=== PATIENT | male | born 1975 | race Caucasian/White ===

== ENCOUNTER 2018-11-21 17:30 | Observation (INO) | payer BC, SELFPAY ==
[2018-11-21] VITALS (7 sets, daily range): BP systolic 108–142; BP diastolic 71–88; PULSE 98–106; RESP 16–20; TEMP 37.3–37.5; O2SAT 92–99; BMI 31.6; BMI 34.4
[2018-11-21 17:46] LABS: Bacteria 0 SEEN /hpf (None Seen); Mucous, Urine 0 SEEN /hpf (<or=2+); Red Blood Cells-Urine 0 SEEN /hpf (0-5); Squamous Epithelial Cells - UA 0 SEEN /hpf (0-5); White Blood Cells 0 SEEN /hpf (0-5)
[2018-11-21 17:52] LABS: Color, Urine Yellow (Yellow); Glucose, Dipstick Normal (Normal); Ketone-Dipstick Negative (Negative); Leukocyte Esterase-Dipstick Negative /ul (Negative); Nitrite-Dipstick Negative (Negative); Occult Blood-Urine Negative /ul (Negative); Protein-Dipstick Negative (Negative); Urine Bilirubin Dipstick Negative (Negative); Urine Clarity Clear (Clear); Urine Urobilinogen Normal (Normal)
[2018-11-21 18:09] LABS: Absolute Lymphocyte Count 1.63 X10^3/ul (0.83-4.51); Absolute Neutrophil Count 8.3 X10^3/uL (2.0-7.7); Basophil# 0.03 X10^3/uL; Basophil% 0.3 % (0-1); Eosinophil# 0.26 X10^3/uL; Eosinophils% 2.3 % (0-5); Hemoglobin 13.2 g/dl (13.0-16.5); Lymphocyte # 1.63 X10^3/ul (4.0); Lymphocyte % 14.2 % (19-41); Mean Corpuscular Hgb 28.9 pg (27.0-32.0); Mean Corpuscular Volume 87.5 fL (80-94); Mean Platelet Vol. 10.2 fl (6.2-12.0); Monocyte# 1.28 X10^3/uL; Monocyte% 11.1 % (0-10); Neutrophil # 8.25 X10^3/uL (2.7-7.7); Neutrophil % 71.8 % (47-70); POSITIVE COUNT NO; POSITIVE DIFFERENTIAL NO; POSITIVE MORPHOLOGY NO; Platelet Count 270 K/mm3 (150-450); RBC Distribution Width CV 13.6 % (11.6-14.6); RBC Distribution Width SD 43.7 fl (35.1-43.9); Red Blood Count 4.57 M/mm3 (4.6-6.2); White Blood Count 11.5 K/mm3 (4.4-11.0)
[2018-11-21 18:16] LABS: Anion Gap 5 (5-15); BUN 13 mg/dL (7-18); BUN/Creat Ratio 11.5 RATIO (10-20); Calcium,Total 8.8 mg/dL (8.5-10.1); Chloride 105 mmol/L (98-107); Creatinine, Serum 1.13 mg/dL (0.70-1.30); EST Glomerular Filtration Rate 75 mL/min (>60); Est Glom Filt Rate - Afr Amer 91 mL/min (>60); Estimated Creatinine Clearance 73.32 ml/min; Glucose 99 mg/dL (74-106); Potassium 3.9 mmol/L (3.5-5.1); Sodium Level 138 mmol/L (136-145)
--- NOTE | 2018-11-21 18:43 | CT_ITS ---
STUDY: CT ABDOMEN AND PELVIS WITHOUT CONTRAST REASON FOR EXAM: Male, 43 years old. Right lower quadrant pain since yesterday. RADIATION DOSAGE (If Supplied By Facility): CTDIvol = ( 16.43 ) mGy, DLP = ( 1151.49 ) mGycm TECHNIQUE: Transaxial images were obtained from the dome of the diaphragm to the symphysis pubis without oral contrast, and without intravenous contrast. Sagittal and coronal images were reconstructed. Individualized dose optimization techniques were used for this CT. COMPARISON: None. FINDINGS: The visualized lung bases are unremarkable. The visualized portions of the heart are within normal limits. The liver is normal in size contour and density. There is a vague heterogenous hypoechoic area in segment IVb of the liver which may represent a complicated cyst or hemangioma. Liver is otherwise unremarkable. Normal gallbladder and extrahepatic biliary system. Normal spleen. Normal pancreas. Normal bilateral adrenal glands. There are at least 3 small calcifications in the lower pole calyces of the right kidney. The largest measures 2 mm. The right kidney is otherwise unremarkable. There is no hydronephrosis. Normal right ureter. The left kidney is of normal size and cortical thickness. There are multiple small nonobstructing renal calculi in both the upper and lower poles. The largest measures 3 mm. There is no hydronephrosis. Normal left ureter. There is a small type I hiatal hernia. The stomach is otherwise unremarkable. Normal small intestine. There is inflammatory changes in the right lower quadrant about the cecum and terminal ileum. The appendix is enlarged measuring 1.6 cm in diameter. There are 2 appendicoliths in the proximal appendix. The distal appendix is more normal in diameter but demonstrates stranding and mild wall thickening.. There is no obvious perforation. There is no periappendiceal abscess. Normal abdominal aorta. Normal inferior vena cava. Normal retroperitoneum. Normal urinary bladder. Prostate. There are phleboliths in the pelvis without lymphadenopathy. No free air or free fluid is seen within the peritoneal cavity. Normal abdominal wall. There are diffuse degenerative changes of the visualized lumbar spine. CT/Abdomen/Pelvis W IV Cont ONLY IMPRESSION: 1. Findings suggestive of uncomplicated appendicitis. 2. Hemangioma versus complicated cyst in segment IVb of the liver. 3. Mild degenerative changes of the lumbar spine. N.B. : The above information has been verbally conveyed by Anthony Goss DO to Cuca Devi MD, on 11/21/2018 19:53:14 (ET). Electronically Signed: Anthony Goss DO at 19:54 EST Tel [phone], Service support ,
--- NOTE | 2018-11-21 18:44 | ED.VISSUMM ---
- ER Visit Summary Date of Service: 11/21/18 Chief Complaint: Abdominal pain History of Present Illness: The patient is a 43 M who presents for 1 day of abdominal pain. Pain began yesterday and was described as a pressure in the right lower quadrant. Today the pain became constant and more severe. Worse with movement, walking and car rides. Improved with remaining still. No change with food. Patient has had a decreased appetite today and has not really eaten. No radiation to the pain. No nausea, vomiting, diarrhea, urinary symptoms, back pain or fever. Patient has no history of abdominal surgery. He has not tried any medication for the pain. Physical Examination: Vital signs: afebrile, hemodynamically stable, no hypoxia on room air General: well nourished, well developed, in no distress Skin: warm, dry, no rash, no pallor HEENT: normocephalic and atraumatic; PERRL, EOMI, moist mucous membranes Cardiovascular: Tachycardic rate and regular rhythm without murmurs, no peripheral edema, 2+ pulses all distal extremities Respiratory: No increased work of breathing, lungs are clear to auscultation bilaterally, no rales, rhonchi or wheezing Abdominal: Abdomen is soft, tender in the left lower quadrant, right mid region and tender to very light palpation with rebound in the right lower quadrant. With normoactive bowel sounds, no guarding, no masses, no inguinal masses, no hernia appreciated : Normal exam MSK: Moves all extremities, no deformities, normal strength Neuro: Awake and alert, oriented ?4. No facial droop, sensation and motor function intact and symmetric Test Results: Abnormal Lab Results 11/21/18 11/21/18 11/21/18 17:38 17:55 17:55 WBC 11.5 H RBC 4.57 L Hgb 13.2 Hct 40.0 MCV 87.5 MCH 28.9 MCHC 33.0 RDW 13.6 RDW Differential 43.7 Plt Count 270 MPV 10.2 Immature Gran % (Auto) 0.300 Neut % (Auto) 71.8 H Lymph % (Auto) 14.2 L [place] % (Auto) 11.1 H Eos % (Auto) 2.3 Baso % (Auto) 0.3 Absolute Neuts (auto) 8.3 H Absolute Lymphs (auto) 1.63 Total Counted Not Reportable Sodium 138 Potassium 3.9 Chloride 105 Carbon Dioxide 28.0 Anion Gap 5 BUN 13 Creatinine 1.13 Estim Creat Clear Calc 73.32 Est GFR (MDRD) Af Amer 91 Est GFR (MDRD) Non-Af 75 BUN/Creatinine Ratio 11.5 Glucose 99 Calcium 8.8 Urine Color Yellow Urine Clarity Clear Urine pH 7.0 Ur Specific [place] 1.010 Urine Protein Negative Urine Glucose (UA) Normal Urine Ketones Negative Urine Occult Blood Negative Urine Nitrite Negative Urine Bilirubin Negative Urine Urobilinogen Normal Ur Leukocyte Esterase Negative Urine RBC 0 SEEN Urine WBC 0 SEEN Ur Squamous Epith Cells 0 SEEN Urine Bacteria 0 SEEN Urine Mucus 0 SEEN Clinical Impression(s) from Imaging Studies Abdomen/Pelvis CT 11/21/18 18:43 IMPRESSION: 1. Findings suggestive of uncomplicated appendicitis. 2. Hemangioma versus complicated cyst in segment IVb of the liver. 3. Mild degenerative changes of the lumbar spine. N.B. : The above information has been verbally conveyed by Anthony Goss DO to Cuca Devi MD, on 11/21/2018 19:53:14 (ET). Electronically Signed: Anthony Goss DO at 19:54 EST Tel [phone], Service support , ADDENDUM: 11/21/182001 IMPRESSION: 1. Findings suggestive of uncomplicated appendicitis. 2. Hemangioma versus complicated cyst in segment IVb of the liver. 3. Mild degenerative changes of the lumbar spine. N.B. : The above information has been verbally conveyed by Anthony Goss DO to Cuca Devi MD, on 11/21/2018 19:53:14 (ET). Electronically Signed: Anthony Goss DO at 19:54 EST Tel [phone], Service support , Medications Given Piperacillin Sod/Tazobactam (Sod 4.5 gm/ Sodium Chloride) 100 mls @ 200 mls/hr IV X1 ONE Stop: 11/21/18 20:45 Discontinued Medications Sodium Chloride () 1,000 mls @ 999 mls/hr IV .Q1H1M ONE Stop: 11/21/18 19:44 Last Admin: 11/21/18 19:10 Dose: 999 mls/hr Emergency Department Course and Treatment: Patient was offered and declined pain medication. Labs were performed and showed no leukocytosis. Urine was negative for infection or hematuria.. CT the abdomen and pelvis performed to evaluate for possible appendicitis. CT was consistent with uncomplicated appendicitis. Patient was started on Zosyn. Patient made n.p.o. Last oral intake was earlier this afternoon at 2 PM. He was discussed with Dr. Wheat and was taken for surgical intervention directly from the emergency department. Treatment Plan: [] Disposition: [] Impression: Acute appendicitis This note was generated with [employer] dictation software. It may contain incorrect words, spelling, and punctuation that were not noted in review of the chart prior to signing ED Disposition - Plan for ED Patient: Disposition: Acute Care [facility]
--- NOTE | 2018-11-21 18:47 | ED.DCSUM_ITS ---
- ER Visit Summary Date of Service: 11/21/18 Chief Complaint: Abdominal pain History of Present Illness: The patient is a 43 M who presents for 1 day of abdominal pain. Pain began yesterday and was described as a pressure in the right lower quadrant. Today the pain became constant and more severe. Worse with movement, walking and car rides. Improved with remaining still. No change with food. Patient has had a decreased appetite today and has not really eaten. No radiation to the pain. No nausea, vomiting, diarrhea, urinary symptoms, back pain or fever. Patient has no history of abdominal surgery. He has not tried any medication for the pain. Physical Examination: Vital signs: afebrile, hemodynamically stable, no hypoxia on room air General: well nourished, well developed, in no distress Skin: warm, dry, no rash, no pallor HEENT: normocephalic and atraumatic; PERRL, EOMI, moist mucous membranes Cardiovascular: Tachycardic rate and regular rhythm without murmurs, no peripheral edema, 2+ pulses all distal extremities Respiratory: No increased work of breathing, lungs are clear to auscultation bilaterally, no rales, rhonchi or wheezing Abdominal: Abdomen is soft, tender in the left lower quadrant, right mid region and tender to very light palpation with rebound in the right lower quadrant. With normoactive bowel sounds, no guarding, no masses, no inguinal masses, no hernia appreciated : Normal exam MSK: Moves all extremities, no deformities, normal strength Neuro: Awake and alert, oriented ?4. No facial droop, sensation and motor function intact and symmetric Test Results: Abnormal Lab Results 11/21/18 11/21/18 11/21/18 17:38 17:55 17:55 WBC 11.5 H RBC 4.57 L Hgb 13.2 Hct 40.0 MCV 87.5 MCH 28.9 MCHC 33.0 RDW 13.6 RDW Differential 43.7 Plt Count 270 MPV 10.2 Immature Gran % (Auto) 0.300 Neut % (Auto) 71.8 H Lymph % (Auto) 14.2 L [place] % (Auto) 11.1 H Eos % (Auto) 2.3 Baso % (Auto) 0.3 Absolute Neuts (auto) 8.3 H Absolute Lymphs (auto) 1.63 Total Counted Not Reportable Sodium 138 Potassium 3.9 Chloride 105 Carbon Dioxide 28.0 Anion Gap 5 BUN 13 Creatinine 1.13 Estim Creat Clear Calc 73.32 Est GFR (MDRD) Af Amer 91 Est GFR (MDRD) Non-Af 75 BUN/Creatinine Ratio 11.5 Glucose 99 Calcium 8.8 Urine Color Yellow Urine Clarity Clear Urine pH 7.0 Ur Specific [place] 1.010 Urine Protein Negative Urine Glucose (UA) Normal Urine Ketones Negative Urine Occult Blood Negative Urine Nitrite Negative Urine Bilirubin Negative Urine Urobilinogen Normal Ur Leukocyte Esterase Negative Urine RBC 0 SEEN Urine WBC 0 SEEN Ur Squamous Epith Cells 0 SEEN Urine Bacteria 0 SEEN Urine Mucus 0 SEEN Clinical Impression(s) from Imaging Studies Abdomen/Pelvis CT 11/21/18 18:43 IMPRESSION: 1. Findings suggestive of uncomplicated appendicitis. 2. Hemangioma versus complicated cyst in segment IVb of the liver. 3. Mild degenerative changes of the lumbar spine. N.B. : The above information has been verbally conveyed by Anthony Goss DO to Cuca Devi MD, on 11/21/2018 19:53:14 (ET). Electronically Signed: Anthony Goss DO at 19:54 EST Tel [phone], Service support , ADDENDUM: 11/21/182001 IMPRESSION: 1. Findings suggestive of uncomplicated appendicitis. 2. Hemangioma versus complicated cyst in segment IVb of the liver. 3. Mild degenerative changes of the lumbar spine. N.B. : The above information has been verbally conveyed by Anthony Goss DO to Cuca Devi MD, on 11/21/2018 19:53:14 (ET). Electronically Signed: Anthony Goss DO at 19:54 EST Tel [phone], Service support , Medications Given Piperacillin Sod/Tazobactam (Sod 4.5 gm/ Sodium Chloride) 100 mls @ 200 mls/hr IV X1 ONE Stop: 11/21/18 20:45 Discontinued Medications Sodium Chloride () 1,000 mls @ 999 mls/hr IV .Q1H1M ONE Stop: 11/21/18 19:44 Last Admin: 11/21/18 19:10 Dose: 999 mls/hr Emergency Department Course and Treatment: Patient was offered and declined pain medication. Labs were performed and showed no leukocytosis. Urine was negative for infection or hematuria.. CT the abdomen and pelvis performed to evaluate for possible appendicitis. CT was consistent with uncomplicated appendicitis. Patient was started on Zosyn. Patient made n.p.o. Last oral intake was earlier this afternoon at 2 PM. He was discussed with Dr. Wheat and was taken for surgical intervention directly from the emergency department. Treatment Plan: [] Disposition: [] Impression: Acute appendicitis This note was generated with [employer] dictation software. It may contain incorrect words, spelling, and punctuation that were not noted in review of the chart prior to signing ED Disposition - Plan for ED Patient: Disposition: Acute Care [facility]
[2018-11-21] MEDS: 0.9% Normal Saline 1,000 ML 999 ML IV (19:10)
[2018-11-21 20:21] LABS: AST(SGOT) 22 U/L (15-37); Alanine Aminotransfer ALT/SGPT 34 U/L (16-61); Albumin, Serum 3.8 g/dL (3.2-5.0); Alkaline Phosphatase 59 U/L (45-117); Bilirubin, Direct 0.15 mg/dL (0.00-0.30); Globulin 3.4 g/dL (2.2-4.2); Protein, Total 7.2 g/dL (6.4-8.2)
--- NOTE | 2018-11-21 20:40 | PCM.HP.STD ---
Problem List (1) Acute appendicitis Status: Acute Qualifiers: Acute appendicitis type: unspecified acute appendicitis type Qualified Code(s): K35.80 - Unspecified acute appendicitis History of Present Illness Date of Admission: 11/21/18 Chief Complaint: Right lower quadrant pain The patient is a 43 year old M who reports that yesterday he began having tightness in his right lower abdomen. It became sharp pain this morning. He is not having any nausea or vomiting. He is not having any diarrhea or dysuria. He says the pain is in the right lower quadrant and does not radiate. Past Medical History Allergies No Known Allergies Allergy (Verified 11/21/18 17:32) Home Medications: Ambulatory Orders Medication Instructions Recorded Fenofibrate [Triglide] 54 mg PO DAILY 11/21/18 Lisinopril [Zestril] 10 mg PO DAILY 11/21/18 Surgical History: - - Spine surgery Smoking Status: Never smoker Alcohol: None - *Family History Maternal History Items: No pertinent history Review of Systems Constitutional: Reports: Anorexia. Denies: Fever HEENT: Denies: Difficulty Hearing Cardiovascular: Denies: Chest Pain Respiratory: Denies: Cough, Shortness of Breath Gastrointestinal: Reports: Abdominal Pain. Denies: Diarrhea, Hematochezia, Nausea, Vomiting Genitourinary: Denies: Dysuria Musculoskeletal: Denies: Joint Tenderness Skin: Denies: Dryness, Jaundice Neurological: Denies: Balance problems Psychiatric: Denies: Anxiety, Depression Hematologic/ Lymphatic: Denies: Anemia VTE Information - Inpt Only VTE Present on Admission: No VTE Mechan Device Prophylaxis: SCD's Patient Problems: Active and Suspected Problems Acute appendicitis (Acute) - Physical Exam General: Alert, Oriented x3, Cooperative, No apparent distress HEENT: Atraumatic, PERRLA, EOMI, Normocephalic Oral: Moist Mucosa Neck: No JVD Lungs: Normal air movement Cardiovascular: Regular rate, Regular Rhythm Abdomen: Soft, Non-Distended, Tender - Tender in the right lower quadrant. Extremities: No clubbing Skin: No rashes Musculoskeletal: No Muscle Wasting Neurological: Cranial nerves II-XII grossly intact Psych/Mental Status: Normal Affect Vital Signs Temp Pulse Resp BP Pulse Ox 99.1 F 105 H 18 142/77 H 98 11/21/18 17:30 11/21/18 17:30 11/21/18 17:30 11/21/18 17:30 11/21/18 17:30 Oxygen Delivery Method Room Air Weight: 190 lb Body Mass Index (BMI) 31.6 Laboratory Tests Past 24 Hrs 11/21/18 11/21/18 11/21/18 17:38 17:55 17:55 WBC 11.5 H RBC 4.57 L Hgb 13.2 Hct 40.0 MCV 87.5 MCH 28.9 MCHC 33.0 RDW 13.6 RDW Differential 43.7 Plt Count 270 MPV 10.2 Immature Gran % (Auto) 0.300 Neut % (Auto) 71.8 H Lymph % (Auto) 14.2 L [place] % (Auto) 11.1 H Eos % (Auto) 2.3 Baso % (Auto) 0.3 Absolute Neuts (auto) 8.3 H Absolute Lymphs (auto) 1.63 Total Counted Not Reportable Sodium 138 Potassium 3.9 Chloride 105 Carbon Dioxide 28.0 Anion Gap 5 BUN 13 Creatinine 1.13 Estim Creat Clear Calc 73.32 Est GFR (MDRD) Af Amer 91 Est GFR (MDRD) Non-Af 75 BUN/Creatinine Ratio 11.5 Glucose 99 Calcium 8.8 Total Bilirubin Direct Bilirubin AST ALT Alkaline Phosphatase Total Protein Albumin Globulin Urine Color Yellow Urine Clarity Clear Urine pH 7.0 Ur Specific [place] 1.010 Urine Protein Negative Urine Glucose (UA) Normal Urine Ketones Negative Urine Occult Blood Negative Urine Nitrite Negative Urine Bilirubin Negative Urine Urobilinogen Normal Ur Leukocyte Esterase Negative Urine RBC 0 SEEN Urine WBC 0 SEEN Ur Squamous Epith Cells 0 SEEN Urine Bacteria 0 SEEN Urine Mucus 0 SEEN 11/21/18 17:55 WBC RBC Hgb Hct MCV MCH MCHC RDW RDW Differential Plt Count MPV Immature Gran % (Auto) Neut % (Auto) Lymph % (Auto) [place] % (Auto) Eos % (Auto) Baso % (Auto) Absolute Neuts (auto) Absolute Lymphs (auto) Total Counted Sodium Potassium Chloride Carbon Dioxide Anion Gap BUN Creatinine Estim Creat Clear Calc Est GFR (MDRD) Af Amer Est GFR (MDRD) Non-Af BUN/Creatinine Ratio Glucose Calcium Total Bilirubin 0.50 Direct Bilirubin 0.15 AST 22 ALT 34 Alkaline Phosphatase 59 Total Protein 7.2 Albumin 3.8 Globulin 3.4 Urine Color Urine Clarity Urine pH Ur Specific [place] Urine Protein Urine Glucose (UA) Urine Ketones Urine Occult Blood Urine Nitrite Urine Bilirubin Urine Urobilinogen Ur Leukocyte Esterase Urine RBC Urine WBC Ur Squamous Epith Cells Urine Bacteria Urine Mucus Clinical Impression(s) from Imaging Studies Abdomen/Pelvis CT 11/21/18 18:43 IMPRESSION: 1. Findings suggestive of uncomplicated appendicitis. 2. Hemangioma versus complicated cyst in segment IVb of the liver. 3. Mild degenerative changes of the lumbar spine. N.B. : The above information has been verbally conveyed by Anthony Goss DO to Cuca Devi MD, on 11/21/2018 19:53:14 (ET). Electronically Signed: Anthony Goss DO at 19:54 EST Tel [phone], Service support , ADDENDUM: 11/21/182001 IMPRESSION: 1. Findings suggestive of uncomplicated appendicitis. 2. Hemangioma versus complicated cyst in segment IVb of the liver. 3. Mild degenerative changes of the lumbar spine. N.B. : The above information has been verbally conveyed by Anthony Goss DO to Cuca Devi MD, on 11/21/2018 19:53:14 (ET). Electronically Signed: Anthony Goss DO at 19:54 EST Tel [phone], Service support , Assessment/Plan All Active Problems Acute appendicitis (Acute) 43-year-old male with acute appendicitis 1. Patient has acute appendicitis on his CT scan. He also has mildly elevated white count. Patient reports he has right lower quadrant pain. I explained laparoscopic appendectomy to the patient in detail. I expand the risks including but not limited to bleeding, infection, injury to organs surrounding the appendix such as the bowel or ureter. The patient understands the risks and is willing to proceed with surgery. He was given antibiotics in the emergency room. Carlos Morris MD Pager: [facility] [address] [place] [address], [address] [place] [phone] Office:
--- NOTE | 2018-11-21 20:43 | HP.PCM_ITS ---
Problem List (1) Acute appendicitis Status: Acute Qualifiers: Acute appendicitis type: unspecified acute appendicitis type Qualified Code(s): K35.80 - Unspecified acute appendicitis History of Present Illness Date of Admission: 11/21/18 Chief Complaint: Right lower quadrant pain The patient is a 43 year old M who reports that yesterday he began having tightness in his right lower abdomen. It became sharp pain this morning. He is not having any nausea or vomiting. He is not having any diarrhea or dysuria. He says the pain is in the right lower quadrant and does not radiate. Past Medical History Allergies No Known Allergies Allergy (Verified 11/21/18 17:32) Home Medications: Ambulatory Orders Medication Instructions Recorded Fenofibrate [Triglide] 54 mg PO DAILY 11/21/18 Lisinopril [Zestril] 10 mg PO DAILY 11/21/18 Surgical History: - - Spine surgery Smoking Status: Never smoker Alcohol: None - *Family History Maternal History Items: No pertinent history Review of Systems Constitutional: Reports: Anorexia. Denies: Fever HEENT: Denies: Difficulty Hearing Cardiovascular: Denies: Chest Pain Respiratory: Denies: Cough, Shortness of Breath Gastrointestinal: Reports: Abdominal Pain. Denies: Diarrhea, Hematochezia, Nausea, Vomiting Genitourinary: Denies: Dysuria Musculoskeletal: Denies: Joint Tenderness Skin: Denies: Dryness, Jaundice Neurological: Denies: Balance problems Psychiatric: Denies: Anxiety, Depression Hematologic/ Lymphatic: Denies: Anemia VTE Information - Inpt Only VTE Present on Admission: No VTE Mechan Device Prophylaxis: SCD's Patient Problems: Active and Suspected Problems Acute appendicitis (Acute) - Physical Exam General: Alert, Oriented x3, Cooperative, No apparent distress HEENT: Atraumatic, PERRLA, EOMI, Normocephalic Oral: Moist Mucosa Neck: No JVD Lungs: Normal air movement Cardiovascular: Regular rate, Regular Rhythm Abdomen: Soft, Non-Distended, Tender - Tender in the right lower quadrant. Extremities: No clubbing Skin: No rashes Musculoskeletal: No Muscle Wasting Neurological: Cranial nerves II-XII grossly intact Psych/Mental Status: Normal Affect Vital Signs Temp Pulse Resp BP Pulse Ox 99.1 F 105 H 18 142/77 H 98 11/21/18 17:30 11/21/18 17:30 11/21/18 17:30 11/21/18 17:30 11/21/18 17:30 Oxygen Delivery Method Room Air Weight: 190 lb Body Mass Index (BMI) 31.6 Laboratory Tests Past 24 Hrs 11/21/18 11/21/18 11/21/18 17:38 17:55 17:55 WBC 11.5 H RBC 4.57 L Hgb 13.2 Hct 40.0 MCV 87.5 MCH 28.9 MCHC 33.0 RDW 13.6 RDW Differential 43.7 Plt Count 270 MPV 10.2 Immature Gran % (Auto) 0.300 Neut % (Auto) 71.8 H Lymph % (Auto) 14.2 L [place] % (Auto) 11.1 H Eos % (Auto) 2.3 Baso % (Auto) 0.3 Absolute Neuts (auto) 8.3 H Absolute Lymphs (auto) 1.63 Total Counted Not Reportable Sodium 138 Potassium 3.9 Chloride 105 Carbon Dioxide 28.0 Anion Gap 5 BUN 13 Creatinine 1.13 Estim Creat Clear Calc 73.32 Est GFR (MDRD) Af Amer 91 Est GFR (MDRD) Non-Af 75 BUN/Creatinine Ratio 11.5 Glucose 99 Calcium 8.8 Total Bilirubin Direct Bilirubin AST ALT Alkaline Phosphatase Total Protein Albumin Globulin Urine Color Yellow Urine Clarity Clear Urine pH 7.0 Ur Specific [place] 1.010 Urine Protein Negative Urine Glucose (UA) Normal Urine Ketones Negative Urine Occult Blood Negative Urine Nitrite Negative Urine Bilirubin Negative Urine Urobilinogen Normal Ur Leukocyte Esterase Negative Urine RBC 0 SEEN Urine WBC 0 SEEN Ur Squamous Epith Cells 0 SEEN Urine Bacteria 0 SEEN Urine Mucus 0 SEEN 11/21/18 17:55 WBC RBC Hgb Hct MCV MCH MCHC RDW RDW Differential Plt Count MPV Immature Gran % (Auto) Neut % (Auto) Lymph % (Auto) [place] % (Auto) Eos % (Auto) Baso % (Auto) Absolute Neuts (auto) Absolute Lymphs (auto) Total Counted Sodium Potassium Chloride Carbon Dioxide Anion Gap BUN Creatinine Estim Creat Clear Calc Est GFR (MDRD) Af Amer Est GFR (MDRD) Non-Af BUN/Creatinine Ratio Glucose Calcium Total Bilirubin 0.50 Direct Bilirubin 0.15 AST 22 ALT 34 Alkaline Phosphatase 59 Total Protein 7.2 Albumin 3.8 Globulin 3.4 Urine Color Urine Clarity Urine pH Ur Specific [place] Urine Protein Urine Glucose (UA) Urine Ketones Urine Occult Blood Urine Nitrite Urine Bilirubin Urine Urobilinogen Ur Leukocyte Esterase Urine RBC Urine WBC Ur Squamous Epith Cells Urine Bacteria Urine Mucus Clinical Impression(s) from Imaging Studies Abdomen/Pelvis CT 11/21/18 18:43 IMPRESSION: 1. Findings suggestive of uncomplicated appendicitis. 2. Hemangioma versus complicated cyst in segment IVb of the liver. 3. Mild degenerative changes of the lumbar spine. N.B. : The above information has been verbally conveyed by Anthony Goss DO to Cuca Devi MD, on 11/21/2018 19:53:14 (ET). Electronically Signed: Anthony Goss DO at 19:54 EST Tel [phone], Service support , ADDENDUM: 11/21/182001 IMPRESSION: 1. Findings suggestive of uncomplicated appendicitis. 2. Hemangioma versus complicated cyst in segment IVb of the liver. 3. Mild degenerative changes of the lumbar spine. N.B. : The above information has been verbally conveyed by Anthony Goss DO to Cuca Devi MD, on 11/21/2018 19:53:14 (ET). Electronically Signed: Anthony Goss DO at 19:54 EST Tel [phone], Service support , Assessment/Plan All Active Problems Acute appendicitis (Acute) 43-year-old male with acute appendicitis 1. Patient has acute appendicitis on his CT scan. He also has mildly elevated white count. Patient reports he has right lower quadrant pain. I explained laparoscopic appendectomy to the patient in detail. I expand the risks including but not limited to bleeding, infection, injury to organs surrounding the appendix such as the bowel or ureter. The patient understands the risks and is willing to proceed with surgery. He was given antibiotics in the emergency room. Carlos Morris MD Pager: [facility] [address] [place] [address], [address] [place] [phone] Office:
[2018-11-21] MEDS: Bupiv/Epi 0.25% 30 ML Vial (21:45)
--- NOTE | 2018-11-21 21:50 | APP_PTH ---
PATIENT: MANN DELCID LOC: MS3 U#:[id number] AGE/SX: 43/M ROOM: MS311 RE11/21/[address]: Dr. Carlos Morris MD : 1975 BED: 1 DIS: 11/22/2018 SPEC #: [id number] RECD: 11/22/18 09:14 STATUS: HUBER HERNANDES #: [id number] JORDANA: 11/21/18 21:[address]: Carlos Morris DEPT: SURGICAL PATHOLOGY RECD BY: Laci Chowdary ENTERED: 11/22/18 11:11 SP TYPE: APPENDIX OTHR DR: Dr. Dimitrios Tuttle MD Tissues: Appendix, NOS Procedures: Surgery Specimen Level III HEADER OPERATION: Laparoscopic appendectomy PRE-OP DIAGNOSIS: Acute appendicitis; perforated appendicitis TISSUE SUBMITTED: Appendix MICROSCOPIC DIAGNOSIS Appendix, appendectomy: Acute appendicitis and periappendicitis. SJ:paul 2/7/19 MICROSCOPIC DESCRIPTION Slides are reviewed. GROSS DESCRIPTION Received is one container labeled with the patient's name and designated appendix. The specimen consists of an appendix measuring 6.5 cm in length and up to 0.6 cm in average diameter. The attached periappendiceal adipose tissue measures up to 1.5 cm in width. The serosa is congested. No obvious perforation is identified. The mucosa is focally congested. The lumen contains small amount of hemorrhagic material and is pinpoint. No fecalith is identified. Assistant Import Manager sections are submitted in one cassette. / FENG:paul 11/22/18 TC:2 CPT: 95105
--- NOTE | 2018-11-21 22:16 | PCM.OPRPT ---
Problem List (1) Acute appendicitis Status: Acute Qualifiers: Acute appendicitis type: unspecified acute appendicitis type Qualified Code(s): K35.80 - Unspecified acute appendicitis Report of Operation Date of Procedure: 11/21/18 Pre-Operative Diagnosis: Acute appendicitis Post-Operative Diagnosis: Perforated acute appendicitis Surgery/Procedure Performed:: Laparoscopic appendectomy Description of Surgical Findings:: The patient had a contained perforation into an abscess into the mesoappendix. Once the mesoappendix was taken down and appendicolith was apparent in this abscess. Once the stapler was fired across the base the appendix it appeared that the cecum was sealed off with no perforation into the colon. Specimen's removed: Appendix Description of Procedure: The patient was brought into the operating room and general anesthesia was induced. The left arm was tucked and the abdomen was prepped and draped in usual sterile fashion. A small midline incision was made superior to the umbilicus and deepened to the level of the fascia. The fascia was elevated and incised. The peritoneum was also elevated and incised. A finger sweep was performed and a balloon trocar was placed into the abdomen and inflated. The abdomen was insufflated to 15 mmHg and the camera was inserted and the abdomen was inspected for any injuries upon entering the abdomen. There were none. The patient was placed in Trendelenburg position and a 5 mm ports placed in the left lower quadrant and suprapubic areas under direct visualization. Next using atraumatic bowel graspers the appendix was identified. The appendix was grasped and elevated and a harmonic scalpel was used to take down the mesoappendix. Once the base of the appendix was reached there was a small abscess in the mesoappendix with the appendicolith. I was able to get below this with a stapler. A stapler was used to come across the base of the appendix. The appendix was then placed in Endo Catch bag and removed through the umbilical incision. The staple line was inspected and found to be hemostatic and intact. The 2 5 mm ports are removed under direct visualization. The balloon trocar was deflated and removed and all the air was removed from the abdomen. The umbilical incision fascia was closed with an 0 Vicryl [id number] suture. The incisions were then irrigated with saline and dried. Local anesthetic was injected into the incision sites. The skin incisions were then closed with interrupted 4-0 Monocryl suture and Steri-Strips. Bandages were applied and the patient was awoken and taken to PACU in stable condition. Patient tolerated the procedure well. - Admit VTE Documentation VTE Mechan Device Prophylaxis: SCD's
[2018-11-22 00:02] VITALS: BP 103/63; PULSE 90; RESP 18; TEMP 36.6; O2SAT 98
[2018-11-22] MEDS: 0.9% Normal Saline 1,000 ML 100 ML IV (00:22)
[2018-11-22 01:37] VITALS: BP 113/97; PULSE 76; RESP 18; TEMP 37.2; O2SAT 97
[2018-11-22] MEDS: Morphine 2 MG/ML Syringe IV ×2 (01:41→03:34)
[2018-11-22] MEDS: 0.9% NaCl Peripheral Flush Adult/Peds IV ×2 (01:42→03:34)
[2018-11-22 03:37] VITALS: BP 114/70; PULSE 101; RESP 18; TEMP 37.1; O2SAT 97
--- NOTE | 2018-11-22 08:53 | DCINST_ITS ---
Discharge Diet: Light diet - advance as tolerated Discharge Activity: May Not Drive - for 3-5 days or while taking narcotic pain meds. May shower in (days): 1 Call your doctor if your incision/area has: Continuous Slow Oozing, Sudden Increased Bleeding, Increased Pain/ Swelling, Increased Redness, Foul Smelling Discharge Call your doctor if you observe: Fever of 101 or Higher Suture Line Care: Avoid Pulling/Pushing, Avoid Pinching/Bending Additional Dressing/Incision Instructions:: Keep dressing clean and dry. Change or remove dressing in 2 days. Leave steri strips for 1 week. May protect with a gauze bandaid. Medications to take at Discharge Fenofibrate [Triglide] 54 mg PO DAILY 11/21/18 Lisinopril [Zestril] 10 mg PO DAILY 11/21/18 Oxycodone HCl/Acetaminophen [Percocet 5/325] 1 - 2 tablet PO Q4H PRN PRN 7 Days #30 tablet 11/22/18 Allergies/Adverse Reactions: Allergies No Known Allergies Allergy (Verified 11/21/18 17:32) The following prescriptions were given: Oxycodone HCl/Acetaminophen [Percocet 5/325] 1 - 2 tablet PO Q4H PRN PRN 7 Days #30 tablet PRN Reason: Pain Primary Care Physician: Ritesh Newman [NON-STAFF] - Test Results: Test results from this visit will be discussed in further detail at your follow- up appointment, if applicable. Please Follow Up With: Carlos Morris MD When: Please call to schedule 2 week follow up appointment. [phone]
[2018-11-22 09:20] VITALS: PULSE 99
[2018-11-22] MEDS: Fenofibrate 48 MG Tablet PO (09:36)
[2018-11-22] MEDS: Lisinopril 10 MG Tablet PO (09:37)
[2018-11-22 09:40] VITALS: BP 115/74; PULSE 99; RESP 18; TEMP 37.6; O2SAT 93
--- NOTE | 2018-11-22 09:48 | NURSING ---
This nurse in and assessment completed. Informed pt that he had to pass flatus, eat and keep food down and tolerate po pain meds. Pt has already ate breakfast recently. Pt is walking in [place] at this time. Oxygen taken off and it was 93% on RA at rest and 92% RA while ambulating in [place].
--- NOTE | 2018-11-22 12:17 | NURSING ---
Pt has tolerated food and been walking [place] frequently. Pt just said he passed gas. Pt denies pain. Will send him home.
[2018-11-22 12:38] VITALS: BP 115/78; PULSE 98; RESP 18; TEMP 37.6; O2SAT 95
== END 2018-11-22 12:45 | disposition home or self-care (01) ==
LOC: ED 19:21 → SDC 20:44 → MS3 20:53 → SDC 11-22 10:33
PROVIDERS: Admitting Provider Surgery; Emergency Provider Emergency Medicine; Family Provider Family Medicine; PCP Family Medicine; Referring Provider Surgery; Visit Provider Surgery
PROC: 0DTJ4ZZ Resection of Appendix, Percutaneous Endoscopic Approach (ICD-10-PCS; CPT 44970; principal; 2018-11-21 21:30)
DX: K35.32 Acute appendicitis with perforation, localized peritonitis, and gangrene, without abscess (principal); I10 Essential (primary) hypertension; Z79.899 Other long term (current) drug therapy; E78.00 Pure hypercholesterolemia, unspecified
CPT/HCPCS: 00840; 44970; 74177; 80048; 80076; 81001; 85025; 88304; 96361; 96365; 96375; 96376; 99218; 99282; J7030; J7120; Q9967; A4216; C1760; G0378; J2405

== ENCOUNTER 2018-11-23 13:06 | Observation (INO) | payer BC, SELFPAY ==
[2018-11-21 23:44] VITALS: BMI 34.4
--- NOTE | 2018-11-23 12:53 | CT_ITS ---
STUDY: CT ABDOMEN AND PELVIS WITH CONTRAST REASON FOR EXAM: Male, 43 years old. Postoperative ileus. Recent appendectomy. RADIATION DOSAGE (If Supplied By Facility): CTDIvol = ( 18.54 ) mGy, DLP = ( 1341.11 ) mGycm TECHNIQUE: Transaxial images were obtained from the dome of the diaphragm to the symphysis pubis with oral contrast. 100 ml of Isovue 300 contrast was administered. Sagittal and coronal images were reconstructed. Individualized dose optimization techniques were used for this CT. COMPARISON: Comparison is made with prior CT scan abdomen dated November 21, 2018. FINDINGS: Increased markings at the lung bases with areas of confluence suggestive of either bibasilar atelectasis and/or infiltrates. The visualized portions of the heart are within normal limits. Small amount of perihepatic fluid. Small amount of fluid is also seen in the bilateral renal space. Normal gallbladder and extrahepatic biliary system. There is a 3 cm x 2.5 cm hypodensity in the medial midportion of the spleen. This may represent either a complicated cyst or possible hemangioma. This is unchanged. Normal pancreas. Normal bilateral adrenal glands. Tiny nonobstructive right intrarenal calculi. Stable left renal cyst. Tiny nonobstructive left intrarenal calculi. Normal visualized stomach. Fluid-filled distended small bowel loops down to the region of the terminal ileum. Increased markings are seen in the right lower quadrant at the appendectomy site with a small amount of fluid. Fluid is also seen in the cul-de-sac. The appendix is visualized and appears normal. Normal abdominal aorta. Normal inferior vena cava. Normal retroperitoneum. Normal urinary bladder. Normal abdominal wall. Normal osseous structures. CT/Abdomen/Pelvis WITH Contrast IMPRESSION: Status post appendectomy with postsurgical changes in the right lower quadrant. Increased markings in the surrounding peritoneal fat in the right lower quadrant with fluid in the pelvis as well as perihepatic fluid. Fluid is also seen in the hepatorenal space. Fluid distention of small bowel loops down to the region of the terminal ileum. Stable bilateral nonobstructive intrarenal calculi. Electronically Signed: Fantasma Ndiaye MD at 15:58 EST , Service support ,
[2018-11-23 13:32] VITALS: BMI 32.9
[2018-11-23 13:37] VITALS: BMI 32.9
[2018-11-23 13:56] VITALS: BP 126/72; PULSE 90; RESP 18; TEMP 36.9; O2SAT 94
[2018-11-23] MEDS: Ondansetron 4 MG/2 ML Vial IV (14:18)
[2018-11-23] MEDS: Dextrose 5%-Lactated Ringers 1,000 ML 125 ML IV (14:22)
[2018-11-23 14:23] LABS: Absolute Lymphocyte Count 1.13 X10^3/ul (0.83-4.51); Absolute Neutrophil Count 11.2 X10^3/uL (2.0-7.7); Basophil# 0.01 X10^3/uL; Basophil% 0.1 % (0-1); Eosinophil# 0.03 X10^3/uL; Eosinophils% 0.2 % (0-5); Hematocrit 40.7 % (40-54); Hemoglobin 13.2 g/dl (13.0-16.5); Lymphocyte # 1.13 X10^3/ul (4.0); Lymphocyte % 8.4 % (19-41); Mean Corp Hgb Conc 32.4 g/gl (32-36); Mean Corpuscular Hgb 28.6 pg (27.0-32.0); Mean Corpuscular Volume 88.3 fL (80-94); Mean Platelet Vol. 10.5 fl (6.2-12.0); Monocyte# 1.05 X10^3/uL; Monocyte% 7.8 % (0-10); Neutrophil # 11.18 X10^3/uL (2.7-7.7); Neutrophil % 83.3 % (47-70); Platelet Count 266 K/mm3 (150-450); Red Blood Count 4.61 M/mm3 (4.6-6.2); White Blood Count 13.4 K/mm3 (4.4-11.0)
[2018-11-23 14:24] LABS: POSITIVE COUNT NO; POSITIVE DIFFERENTIAL NO; POSITIVE MORPHOLOGY NO
[2018-11-23 14:32] LABS: Anion Gap 7 (5-15); BUN 9 mg/dL (7-18); BUN/Creat Ratio 9.2 RATIO (10-20); Calcium,Total 8.9 mg/dL (8.5-10.1); Chloride 104 mmol/L (98-107); Creatinine, Serum 0.98 mg/dL (0.70-1.30); EST Glomerular Filtration Rate 89 mL/min (>60); Est Glom Filt Rate - Afr Amer 107 mL/min (>60); Estimated Creatinine Clearance 84.55 ml/min; Glucose 106 mg/dL (74-106); Magnesium 2.1 mg/dL (1.6-2.6); Phosphorus 1.9 mg/dL (2.5-4.9); Potassium 3.9 mmol/L (3.5-5.1); Sodium Level 138 mmol/L (136-145)
--- NOTE | 2018-11-23 15:25 | PCM.HP.STD ---
Problem List (1) Postoperative ileus Status: Acute History of Present Illness Date of Admission: 11/23/18 The patient is a 43 year old M who had a laparoscopic appendectomy earlier this week. He was discharged home yesterday. He was passing a little bit of gas yesterday when he went home but overnight he did not eat well and this morning he started having nausea and vomiting. He feels very bloated and he is not passed any flatus today. Past Medical History Medical History: Medical History (Last Updated 11/21/18 @ 20:41 by Carlos Morris MD) Hypertension I10 Allergies No Known Allergies Allergy (Verified 11/21/18 17:32) Home Medications: Ambulatory Orders Medication Instructions Recorded Fenofibrate [Triglide] 54 mg PO DAILY 11/21/18 Lisinopril [Zestril] 10 mg PO DAILY 11/21/18 Oxycodone HCl/Acetaminophen 1 - 2 tablet PO Q4H PRN PRN 7 Days 11/22/18 [Percocet 5/325] #30 tablet Surgical History: - - Spine surgery Smoking Status: Never smoker Tobacco Use: Non-smoker - *Family History Maternal History Items: No pertinent history Review of Systems Constitutional: Reports: Anorexia. Denies: Fever Cardiovascular: Denies: Claudication, Light Headedness Respiratory: Denies: Cough Gastrointestinal: Reports: Abdominal Pain, Nausea, Vomiting Genitourinary: Denies: Dysuria Psychiatric: Denies: Anxiety Hematologic/ Lymphatic: Denies: Adenopathy VTE Information - Inpt Only VTE Present on Admission: No VTE Mechan Device Prophylaxis: SCD's Patient Problems: Active and Suspected Problems (Last Updated 11/21/18 @ 20:41 by Carlos Morris MD) Postoperative ileus (Acute) - Physical Exam General: Alert, Oriented x3, No apparent distress HEENT: Atraumatic Lungs: Normal air movement Cardiovascular: Regular rate, Regular Rhythm Abdomen: Soft, Distended, Tender Vital Signs Temp Pulse Resp BP Pulse Ox 98.5 F 90 18 126/72 H 94 11/23/18 13:56 11/23/18 13:56 11/23/18 13:56 11/23/18 13:56 11/23/18 13:56 Oxygen Delivery Method Room Air Weight: 197 lb 12.074 oz Body Mass Index (BMI) 32.9 Laboratory Tests Past 24 Hrs 11/23/18 11/23/18 14:06 14:06 WBC 13.4 H RBC 4.61 Hgb 13.2 Hct 40.7 MCV 88.3 MCH 28.6 MCHC 32.4 RDW 14.0 RDW Differential 45.0 H Plt Count 266 MPV 10.5 Immature Gran % (Auto) 0.200 Neut % (Auto) 83.3 H Lymph % (Auto) 8.4 L [place] % (Auto) 7.8 Eos % (Auto) 0.2 Baso % (Auto) 0.1 Absolute Neuts (auto) 11.2 H Absolute Lymphs (auto) 1.13 Total Counted Not Reportable Sodium 138 Potassium 3.9 Chloride 104 Carbon Dioxide 27.0 Anion Gap 7 BUN 9 Creatinine 0.98 Estim Creat Clear Calc 84.55 Est GFR (MDRD) Af Amer 107 Est GFR (MDRD) Non-Af 89 BUN/Creatinine Ratio 9.2 L Glucose 106 Calcium 8.9 Phosphorus 1.9 L Magnesium 2.1 Assessment/Plan All Active Problems (Last Updated 11/21/18 @ 20:41 by Carlos Morris MD) Acute appendicitis (Acute) Postoperative ileus (Acute) 43-year-old male status post laparoscopic appendectomy. 1. The patient reports he is no longer passing flatus and he has not had vomiting today. He feels distended and diffusely tender. His white count came back mildly elevated and I will start antibiotics. This is likely an ileus and a CT is pending. If the patient does have an abscess I will send in for percutaneous drainage if possible. 2. N.p.o./IV fluids. SCDs. Carlos Morris MD Pager: [facility] [address] [place] [address], [address] [place] [address] Office:
[2018-11-23] MEDS: 0.9% NaCl Peripheral Flush Adult/Peds IV (15:51)
[2018-11-23] MEDS: Morphine 2 MG/ML Syringe IV (16:43)
[2018-11-23 20:33] VITALS: BP 135/82; PULSE 92; RESP 18; TEMP 37.1; O2SAT 96
[2018-11-24 02:48] VITALS: BP 114/68; PULSE 79; RESP 16; TEMP 36.9; O2SAT 94
[2018-11-24] MEDS: Dextrose 5%-Lactated Ringers 1,000 ML 125 ML IV ×2 (06:23→14:31)
--- NOTE | 2018-11-24 06:30 | RAD_ITS ---
STUDY: X-RAY - ABDOMEN/PELVIS REASON FOR EXAM: Male, 43 years old. Postoperative ileus. TECHNIQUE: Two AP supine views of the abdomen and pelvis. COMPARISON: None. FINDINGS: Mild degree of increased markings at the lung bases suggestive of atelectasis. Oral contrast is seen throughout the colon. Mildly distended central small bowel loops. Findings suggestive of postoperative ileus. The visualized liver, spleen and kidneys are grossly normal in size and morphology. Normal soft tissue structures. Normal visualized osseous structures. RAD/Abdomen Single View (Portable) IMPRESSION: Oral contrast from prior examination is seen within the colon. Mild gaseous distention of the small bowel loops suggestive of ileus. Electronically Signed: Fantasma Ndiaye MD at 12:50 EST , Service support ,
[2018-11-24 07:05] LABS: Absolute Lymphocyte Count 1.12 X10^3/ul (0.83-4.51); Absolute Neutrophil Count 6.8 X10^3/uL (2.0-7.7); Basophil# 0.01 X10^3/uL; Basophil% 0.1 % (0-1); Eosinophils% 3.3 % (0-5); Hematocrit 35.4 % (40-54); Hemoglobin 11.3 g/dl (13.0-16.5); Lymphocyte # 1.12 X10^3/ul (4.0); Lymphocyte % 12.5 % (19-41); Mean Corp Hgb Conc 31.9 g/gl (32-36); Mean Corpuscular Hgb 28.5 pg (27.0-32.0); Mean Corpuscular Volume 89.2 fL (80-94); Mean Platelet Vol. 9.6 fl (6.2-12.0); Monocyte# 0.71 X10^3/uL; Monocyte% 7.9 % (0-10); Neutrophil # 6.82 X10^3/uL (2.7-7.7); Neutrophil % 76.1 % (47-70); Platelet Count 237 K/mm3 (150-450); RBC Distribution Width CV 13.9 % (11.6-14.6); RBC Distribution Width SD 45.6 fl (35.1-43.9); Red Blood Count 3.97 M/mm3 (4.6-6.2)
[2018-11-24 07:06] LABS: POSITIVE COUNT NO; POSITIVE DIFFERENTIAL NO; POSITIVE MORPHOLOGY NO
[2018-11-24 07:18] LABS: Anion Gap 5 (5-15); BUN 11 mg/dL (7-18); BUN/Creat Ratio 10.1 RATIO (10-20); Calcium,Total 7.9 mg/dL (8.5-10.1); Chloride 106 mmol/L (98-107); Creatinine, Serum 1.09 mg/dL (0.70-1.30); EST Glomerular Filtration Rate 78 mL/min (>60); Est Glom Filt Rate - Afr Amer 95 mL/min (>60); Estimated Creatinine Clearance 76.01 ml/min; Glucose 121 mg/dL (74-106); Potassium 3.8 mmol/L (3.5-5.1); Sodium Level 140 mmol/L (136-145)
[2018-11-24 09:39] VITALS: BP 123/78; PULSE 78; RESP 16; TEMP 37.2; O2SAT 95
--- NOTE | 2018-11-24 15:37 | PCM.PN.SRG ---
Patient Problems: Active and Suspected Problems (Last Updated 11/21/18 @ 20:41 by Carlos Morris MD) Postoperative ileus (Acute) Subjective: Patient had tolerated 2 meals today and he has had several bowel movements and he is passing significant flatus. He has no abdominal pain. No nausea or vomiting. - Physical Exam General: Alert, Oriented x3 Neck: No JVD Lungs: Normal air movement Cardiovascular: Regular rate, Regular Rhythm Abdomen: Soft, Non Tender, Non-Distended Vital Signs Temp Pulse Resp BP Pulse Ox 98.9 F 78 16 123/78 H 95 11/24/18 09:39 11/24/18 09:39 11/24/18 09:39 11/24/18 09:39 11/24/18 09:39 Oxygen Delivery Method Room Air Weight: 197 lb 12.074 oz Body Mass Index (BMI) 32.9 Intake and Output for Last 24 Hours 11/22/18 11/23/18 11/24/18 23:59 23:59 23:59 Intake Total 486 / 486 2258 / 2258 Balance 486 / 486 2258 / 2258 Laboratory Tests Past 24 Hrs 11/24/18 11/24/18 06:54 06:54 WBC 9.0 RBC 3.97 L Hgb 11.3 L Hct 35.4 L MCV 89.2 MCH 28.5 MCHC 31.9 L RDW 13.9 RDW Differential 45.6 H Plt Count 237 MPV 9.6 Immature Gran % (Auto) 0.100 Neut % (Auto) 76.1 H Lymph % (Auto) 12.5 L [place] % (Auto) 7.9 Eos % (Auto) 3.3 Baso % (Auto) 0.1 Absolute Neuts (auto) 6.8 Absolute Lymphs (auto) 1.12 Total Counted Not Reportable Sodium 140 Potassium 3.8 Chloride 106 Carbon Dioxide 29.0 Anion Gap 5 BUN 11 Creatinine 1.09 Estim Creat Clear Calc 76.01 Est GFR (MDRD) Af Amer 95 Est GFR (MDRD) Non-Af 78 BUN/Creatinine Ratio 10.1 Glucose 121 H Calcium 7.9 L Medical Necessity - Tobacco Use Smoking Status: Never smoker Tobacco Use: Non-smoker Assessment/Plan All Active Problems (Last Updated 11/21/18 @ 20:41 by Carlos Morris MD) Acute appendicitis (Acute) Postoperative ileus (Acute) 43-year-old male with postoperative ileus 1. Patient seems to be doing well today. He has had several bowel movements and he is tolerating a full liquid diet. He has no nausea or vomiting and no abdominal pain 2. I will discharge him home. Follow-up in 2 weeks. Carlos Morris MD Pager: [facility] [address] [place] [address] [address] [place] [address] Office:
--- NOTE | 2018-11-24 15:39 | DCINST_ITS ---
Discharge Diet: Light diet - advance as tolerated Call your doctor if your incision/area has: Continuous Slow Oozing, Sudden Increased Bleeding, Increased Pain/ Swelling, Increased Redness, Foul Smelling Discharge Call your doctor if you observe: Fever of 101 or Higher Suture Line Care: Avoid Pulling/Pushing, Avoid Pinching/Bending Medications to take at Discharge Fenofibrate [Triglide] 54 mg PO DAILY 11/21/18 Lisinopril [Zestril] 10 mg PO DAILY 11/21/18 Oxycodone HCl/Acetaminophen [Percocet 5-325] 1 - 2 tablet PO Q4H PRN PRN 7 Days #30 tablet 11/22/18 Allergies/Adverse Reactions: Allergies No Known Allergies Allergy (Verified 11/21/18 17:32) Primary Care Physician: Dimitrios Tuttle MD [Primary Care Provider] - Test Results: Test results from this visit will be discussed in further detail at your follow- up appointment, if applicable. Please Follow Up With: Carlos Morris MD When: Please call to schedule 2 week follow up appointment. [phone]
[2018-11-24 16:36] VITALS: BP 134/87; PULSE 84; RESP 16; TEMP 37.2; O2SAT 97
== END 2018-11-24 16:40 | disposition home or self-care (01) ==
PROVIDERS: Admitting Provider Surgery; Family Provider Family Medicine; PCP Family Medicine; Referring Provider Surgery; Visit Provider Surgery
DX: K56.7 Ileus, unspecified (principal); Z98.890 Other specified postprocedural states; I10 Essential (primary) hypertension; Z79.899 Other long term (current) drug therapy
CPT/HCPCS: 36415; 74018; 74177; 80048; 83735; 84100; 85025; 96361; 96365; 96366; 96375; 99218; Q9967; A4216; G0378; G0379; J2405

== ENCOUNTER 2023-10-06 06:40 | Emergency (ER) | payer BC, SELFPAY ==
[2023-10-06 06:41] VITALS: BP 146/88; PULSE 84; RESP 16; TEMP 36.1; O2SAT 96; BMI 34.4
--- NOTE | 2023-10-06 07:23 | CT_ITS ---
STUDY: CT ABDOMEN AND PELVIS WITH CONTRAST REASON FOR EXAM: Male, 48 years old. Abdominal pain, ventral hernia RADIATION DOSAGE (If Supplied By Facility): CTDIvol = ( 17.65 ) mGy, DLP = ( 1167.14 ) mGycm TECHNIQUE: Transaxial images were obtained from the dome of the diaphragm to the symphysis pubis without oral contrast. IV 100mL Isovue-300 was administered. Sagittal and coronal images were reconstructed. Individualized dose optimization techniques were used for this CT. COMPARISON: Comparison is made with prior study November 23, 2018. FINDINGS: The visualized lung bases are unremarkable. The visualized portions of the heart are within normal limits. Normal liver. There is a solitary gallstone. Stable 3 cm x 2.5 cm hypodensity in the medial midportion of the spleen. This may represent either a complicated cyst or possible hemangioma. Normal pancreas. Normal bilateral adrenal glands. Normal right kidney. Normal left kidney. There is a moderate hiatal hernia. Normal small intestine. Normal colon. The patient is status post appendectomy. Normal abdominal aorta. Normal inferior vena cava. Normal retroperitoneum. Normal urinary bladder. There is a moderate-sized umbilical hernia containing fat. The neck of the hernia measures 2.5 cm. Increased markings are seen within the fat within the hernial sac. This may represent herniated mesentery. The proximal small bowel loops are fluid-filled and measure upper limits of normal. Mild degree of disc space narrowing at the L5-S1 level. CT/Abdomen/Pelvis W IV Cont ONLY IMPRESSION: Umbilical hernia containing fat with increased markings. Mesentery may lie within the hernial sac. Fluid-filled small bowel loops up to the level of the hernia although the small bowel is not dilated at this time. Electronically Signed: Fantasma Ndiaye MD at 8:29 EST ,
--- NOTE | 2023-10-06 07:24 | EDS_ITS ---
HPI HPI - GI History of Present Illness Chief Complaint: Abd Pain Informant: patient Narrative Narrative: Patient is a 48-year-old male with history of hypertension and perforated appendicitis operated on with Dr. Morris laparoscopically in November 2018 presenting with worsening abdominal pain, nausea and vomiting. He states that he woke up he felt a bit more bloated and his pants felt a little tighter. He started driving to work at 4 AM and had increasing pain. He states it has been just above his bellybutton. It is dull and sharp and every once a while becomes excruciating. It does not radiate. Denies any urinary symptoms. Subsequently developed dizziness, nausea and vomiting. States he threw up multiple times. Does not know the color or consistency of his vomit. States he last had normal bowel movement yesterday. Has remote history of kidney stones. Denies any popping or tearing sensation in his abdomen. States that sometimes he does have pain at his surgical incision site just above his bellybutton but is never had pain like this before. Vomiting makes the pain worse. Did not take anything for symptoms prior to arrival. No other complaints or concerns at this time. [facility] Medical History Hyperlipidemia Hypertension Home Medications fenofibrate 40 mg tablet 54 mg PO DAILY cholesterol 11/21/18 [History Last Taken 11/22/18 02:00] lisinopril 10 mg tablet 10 mg PO DAILY BP 11/21/18 [History Last Taken 11/22/18 02:00] Allergy/AdvReac Type Severity Reaction Status Date / Time No Known Allergies Allergy Verified 10/06/23 06:43 Family History Father Hypertension Mother Hypertension Surgical History History of appendectomy (~11/2018) History of cervical spinal surgery Social History Smoking Status: Never smoker ROS ROS ED Constitutional Constitutional ED: Reports sweats; Denies chills or fever(s) Cardiovascular Cardiovascular: Denies chest pain Respiratory/Chest Respiratory/Chest: Denies cough Gastrointestinal Gastrointestinal: Reports abdominal pain, nausea and vomiting; Denies constipation or diarrhea Genitourinary Genitourinary ED: Denies dysuria or hematuria Musculoskeletal Musculoskeletal: Denies arthralgias or back pain Integumentary Denies rash Neurologic Neurologic: Denies headache(s) Hematologic/Lymphatic Hematologic/Lymphatic: Denies easy bleeding or easy bruising EXAM Physical Exam Const Vital Signs: 10/06/23 06:41 10/06/23 08:37 10/06/23 10:36 Temperature 97 F L 98.1 F Temperature Source Temporal Oral Pulse Rate 84 90 Respiratory Rate 16 12 16 Blood Pressure 146/88 H 138/82 H Blood Pressure Mean 107 100 Pulse Ox 96 99 Oxygen Delivery Method Room Air Room Air 10/06/23 10:36 10/06/23 10:38 Temperature 98.1 F 98.1 F Temperature Source Oral Pulse Rate 90 90 Respiratory Rate 16 16 Blood Pressure 138/82 H 138/82 H Blood Pressure Mean 100 100 Pulse Ox 99 99 Oxygen Delivery Method Room Air Positive well nourished and well developed Constitutional Narrative: Acute distress secondary to pain, uncomfortable appearing General Appearance ED: well developed HEENT Reports moist mucous membranes Eyes PERRL and EOMs intact bilaterally Neck supple Resp normal respiratory effort and clear to auscultation bilaterally Cardio regular rate, regular rhythm and no murmurs GI GI Narrative: Significant tenderness to the periumbilical area. Has a firm bulge consistent with a ventral hernia that is incarcerated. There is no overlying erythema. Hypoactive bowel sounds present. Remainder of abdominal exam is soft and benign. Inspection: abdominal distention Palpation: soft and guarding other (Just above the supraumbilical area when I try to press on the hernia) Extremity full ROM General Extremety ED: Negative for edema General Extremity: Negative for edema Neuro Sensorium / Orientation: alert, oriented to person, oriented to place and oriented to time Psych mental status grossly normal and thought process normal Mood & Affect: anxious Skin no wounds Rashes: no rashes MDM MDM MDM Narrative Medical decision making narrative: Patient presents for acute onset of worsening abdominal pain. Clinically has what appears to be an incarcerated ventral hernia. There is no overlying redness or skin changes so low suspicion for strangulated hernia. Patient is administered 6 mg IV morphine as well as Zofran and IV fluids. Ice is applied to the abdomen with hernias. Attempt at manual reduction somewhat successful. Patient has temporary relief of the pain however about 5 minutes later page out that he is having more pain. I went in and reevaluated him and I do not feel an obvious hernia now. Will give additional pain medication and get CT for further evaluation. Lab work significant for mild leukocytosis 12.1 which could be reactive from the hernia. Lactate is pending. Lactate is elevated. CT shows umbilical hernia containing fat with increased markings. Fluid-filled small bowel loops up to the level of the hernia although the bowel is not dilated. Suspect these are findings are consistent with a recently reduced hernia. Case is discussed with Dr. Slater, general surgery on-call. Given that he is currently pain-free she recommends giving a liter of fluid and repeating lactate and then repeat evaluation. Repeat lactate is now normal at 1.3. Patient continues to be pain-free and ambulates in the ER. Will treat hernia outpatient for follow-up with surgery. Patient counseled on how to reduce hernia at home as well as strict return precautions including not passing gas, further pain, vomiting/return of symptoms. He also mentions that he deals with a lot of reflux. He is counseled that general surgery can follow-up with this and is recommended take [id number] omeprazole. Patient verbalized agreement understand this plan. Patient counseled on avoiding things like straining with bowel movements (states he does not normally do this) as well as splinting of the hernia if he has a sneeze or cough to prevent further incarceration. Patient and verbalized agreement understand this plan. 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 Discharged home in stable and improved condition. Lab Data Attestation: I reviewed the patient's lab results. Labs: Laboratory Results - last 24 hr 10/06/23 10/06/23 10/06/23 06:58 07:30 09:20 WBC 12.1 H RBC 4.73 Hgb 13.8 Hct 40.9 MCV 86.5 MCH 29.2 MCHC 33.7 RDW Std Deviation 40.1 RDW Coeff of Tank 12.7 Plt Count 279 MPV 10.6 Immature Gran % (Auto) 0.500 Neut % (Auto) 79.4 H Lymph % (Auto) 12.3 L [place] % (Auto) 6.2 Eos % (Auto) 1.3 Baso % (Auto) 0.3 Absolute Neuts (auto) 9.6 H Absolute Lymphs (auto) 1.48 Nucleated RBC % 0 Sodium 139 Potassium 3.4 L Chloride 103 Carbon Dioxide 22.0 Anion Gap 14 BUN 14 Creatinine 1.24 Estim Creat Clear Calc 63.37 Est GFR (MDRD) Af Amer 80 Est GFR (MDRD) Non-Af 66 BUN/Creatinine Ratio 11.3 Glucose 154 H Lactic Acid 3.4 H* 1.3 Calcium 9.4 Total Bilirubin 0.80 AST 23 ALT 41 Alkaline Phosphatase 55 Total Protein 7.3 Albumin 4.0 Globulin 3.3 Albumin/Globulin Ratio 1.2 Lipase 35 Urine Color Straw Urine Clarity Clear Urine pH 8.0 Ur Specific [place] 1.015 Urine Protein Negative Urine Glucose (UA) Normal Urine Ketones Negative Urine Occult Blood Negative Urine Nitrite Negative Urine Bilirubin Negative Urine Urobilinogen Normal Ur Leukocyte Esterase Negative Urine RBC 0 SEEN Urine WBC 0 SEEN Ur Squamous Epith Cells 0 SEEN Urine Bacteria 0 SEEN Urine Mucus 0 SEEN Radiography Diagnostic Testing: Clinical Impression(s) from Imaging Studies Abdomen/Pelvis CT 10/06/23 07:23 IMPRESSION: Umbilical hernia containing fat with increased markings. Mesentery may lie within the hernial sac. Fluid-filled small bowel loops up to the level of the hernia although the small bowel is not dilated at this time. Electronically Signed: Fantasma Ndiaye MD at 8:29 EST Reading Location ID and State: [address] [place] [address] , Service support , Management Discussion w/another healthcare provider: [employer] Discharge Plan Triage Chief Complaint: Abd Pain ED Provider: Xiomara Harp Dx/Rx/DC Orders Clinical Impression: Abdominal pain, Vomiting, Ventral hernia without obstruction or gangrene Instructions: ED Hernia (Adult) Prescriptions: No Action lisinopril 10 MG tablet 10 mg PO DAILY fenofibrate 40 MG tablet 54 mg PO DAILY Primary Care Provider: Dimitrios Tuttle Referrals: Dimitrios Tuttle MD [Primary Care Provider] - Briana Slater MD [Med Staff - Active Staff] - As soon as possible Activity Restrictions/Additional Instructions: If you have further pain, vomiting or not passing gas/having bowel movements please return to the emergency room. Otherwise I feel you are safe to follow-up outpatient with general surgery. As we discussed I would recommend starting on [id number] daily omeprazole (started 20 mg) for your acid reflux. Please discuss your issues acid reflux when you follow-up with general surgery as well. Is important that you follow-up as you might require surgery for repair of this hernia to prevent further episodes like this. Disposition Disposition: Home, Self Care
[2023-10-06] MEDS: morphine 8 MG/ML Syringe 6 MG IV (07:25)
[2023-10-06] MEDS: Ondansetron 4 MG/2 ML Vial IV (07:25)
[2023-10-06] MEDS: 0.9% Normal Saline (1000mL) 1,000 ML 1000 ML IV (07:26)
[2023-10-06 07:31] LABS: Absolute Lymphocyte Count 1.48 X10^3/uL (0.83-4.51); Absolute Neutrophil Count 9.6 X10^3/uL (2.0-7.7); Basophil# 0.04 X10^3/uL; Basophil% 0.3 % (0-1); Eosinophil# 0.16 X10^3/uL; Eosinophils% 1.3 % (0-5); Hematocrit 40.9 % (40-54); Hemoglobin 13.8 g/dL (13.0-16.5); Lymphocyte # 1.48 X10^3/ul (0.83-4.51); Lymphocyte % 12.3 % (19-41); Mean Corp Hgb Conc 33.7 g/dL (32-36); Mean Corpuscular Hgb 29.2 pg (27.0-32.0); Mean Corpuscular Volume 86.5 fL (80-94); Mean Platelet Vol. 10.6 fl (6.2-12.0); Monocyte# 0.75 X10^3/uL; Monocyte% 6.2 % (0-10); NRBC Flagged by Analyzer 0 % (0-5); Neutrophil # 9.59 X10^3/uL (2.7-7.7); Neutrophil % 79.4 % (47-70); Platelet Count 279 K/mm3 (150-450); RBC Distribution Width CV 12.7 % (11.6-14.6); RBC Distribution Width SD 40.1 fl (35.1-43.9); Red Blood Count 4.73 M/mm3 (4.6-6.2); White Blood Count 12.1 K/mm3 (4.4-11.0)
[2023-10-06 07:37] LABS: ALB/GLOB Ratio 1.2 RATIO (0.9-2.4); AST(SGOT) 23 U/L (15-37); Alanine Aminotransfer ALT/SGPT 41 U/L (16-61); Alkaline Phosphatase 55 U/L (45-117); Anion Gap 14 (5-15); BUN 14 mg/dL (7-18); BUN/Creat Ratio 11.3 RATIO (10-20); Calcium,Total 9.4 mg/dL (8.5-10.1); Chloride 103 mmol/L (98-107); Creatinine, Serum 1.24 mg/dL (0.70-1.30); EST Glomerular Filtration Rate 66 mL/min (>60); Est Glom Filt Rate - Afr Amer 80 mL/min (>60); Estimated Creatinine Clearance 63.37 ml/min; Globulin 3.3 g/dL (2.2-4.2); Glucose 154 mg/dL (74-106); Lipase 35 U/L (13-75); Potassium 3.4 mmol/L (3.5-5.1); Protein, Total 7.3 g/dL (6.4-8.2); Sodium Level 139 mmol/L (136-145)
[2023-10-06] MEDS: HYDROmorphone 1 MG/ML Syringe IV (07:40)
--- NOTE | 2023-10-06 08:13 | ED.RN ---
LAB CALLED LACTIC 3.4 DR JOHNSON
[2023-10-06 08:14] LABS: Lactic Acid 3.4 mmol/L (0.4-1.9)
[2023-10-06] MEDS: 0.9% Normal Saline (1000mL) 1,000 ML 999 ML IV (08:35)
[2023-10-06 08:37] VITALS: RESP 12
[2023-10-06 09:27] LABS: Bacteria 0 SEEN /hpf (None Seen); Mucous, Urine 0 SEEN /hpf (<or=2+); Red Blood Cells-Urine 0 SEEN /hpf (0-5); Squamous Epithelial Cells - UA 0 SEEN /hpf (0-5); White Blood Cells 0 SEEN /hpf (0-5)
[2023-10-06 09:41] LABS: Color, Urine Straw (Yellow); Glucose, Dipstick Normal (Normal); Ketone-Dipstick Negative (Negative); Leukocyte Esterase-Dipstick Negative /ul (Negative); Nitrite-Dipstick Negative (Negative); Occult Blood-Urine Negative /ul (Negative); Protein-Dipstick Negative (Negative); Specific Gravity, Urine 1.015 (1.002-1.030); Urine Bilirubin Dipstick Negative (Negative); Urine Clarity Clear (Clear); Urine Urobilinogen Normal (Normal)
[2023-10-06 10:01] LABS: Lactic Acid 1.3 mmol/L (0.4-1.9)
[2023-10-06 10:36] VITALS: BP 138/82; PULSE 90; RESP 16; TEMP 36.7; O2SAT 99
[2023-10-06 10:38] VITALS: BP 138/82; PULSE 90; RESP 16; TEMP 36.7; O2SAT 99
[2023-10-06 11:37] LABS: Reflex Lactate? Y
== END 2023-10-06 10:57 | disposition home or self-care (01) ==
PROVIDERS: Emergency Provider Emergency Medicine; PCP Family Medicine; Visit Provider Emergency Medicine
DX: K43.9 Ventral hernia without obstruction or gangrene (principal); K21.9 Gastro-esophageal reflux disease without esophagitis; I10 Essential (primary) hypertension; E78.5 Hyperlipidemia, unspecified; Z90.49 Acquired absence of other specified parts of digestive tract; Z79.899 Other long term (current) drug therapy
CPT/HCPCS: 74177; 80053; 81001; 83605; 83690; 85025; 96361; 96374; 96375; 99282; J7030; Q9967; A4216; J2405

== ENCOUNTER 2023-10-18 09:09 | Day surgery (SDC) | payer BC, SELFPAY ==
--- NOTE | 2023-10-16 11:00 | HERN_PTH ---
PATHOLOGY RESULTS PATIENT: MANN DELCID LOC: [facility] [place] U#:[id number] AGE/SX: 48/M ROOM: RE10/18/[address]: Dr. Carlos Morris MD : 1975 BED: DIS: 10/18/2023 SPEC #: [id number] RECD: 10/18/23 13:46 STATUS: HUBER HERNANDES #: [id number] JORDANA: 10/16/23 11:[address]: Carlos Morris DEPT: SURGICAL PATHOLOGY RECD BY: Heidi Mensah ENTERED: 10/18/23 13:46 SP TYPE: Hernia OTHR DR: Dr. Dimitrios Tuttle MD Tissues: HERNIA Procedures: Surgery Specimen Level II HEADER OPERATION: Open ventral hernia repair with mesh PRE-OP DIAGNOSIS: Ventral hernia TISSUE SUBMITTED: Hernia sac MICROSCOPIC DIAGNOSIS Hernia sac, herniorrhaphy: Fibrosis. Reactive mesothelium with minimal chronic inflammation. AM:paul 10/19/2023 MICROSCOPIC DESCRIPTION Slides are reviewed. GROSS DESCRIPTION Received in fixative is one container labeled with the patient's name and designated hernia sac. The specimen consists of multiple pieces of soft tissue that in aggregate measure 6.0 x 4.5 x 1.0 cm. No mass lesion is identified. Truck Caterer sections are submitted in one cassette. / SJ:rg 10/18/2023 TC:5 CPT: 36049
[2023-10-18] VITALS (8 sets, daily range): BP systolic 124–155; BP diastolic 65–101; PULSE 63–74; RESP 14–18; TEMP 36.7–36.8; O2SAT 94–100; BMI 34.4
--- NOTE | 2023-10-18 10:07 | HP.PCM_ITS ---
History and Physical Date of Admission: 10/18/23 Intake Vital Signs 10/06/2306:41 10/13/2309:49 Height 5 ft 5 in 5 ft 5 in Weight: 211 lb BMI 35.1 BP 144/88 H Blood Pressure Location Rt brachial Position Sitting Respiration 17 Pulse 76 Pulse Source Monitor Temp 97.2 F L Temp Source Temporal Pulse Oximetry (%) 96 Oxygen Delivery Method room air Intake Visit Reasons: ED- HERNIA Chief Complaint: ED Hernia Is patient in pain?: Yes Allergies No Known Allergies Allergy (Verified 10/13/23 09:50) Medications fenofibrate 40 mg tablet 54 mg PO DAILY cholesterol 11/21/18 [History Confirmed 10/13/23] lisinopril 10 mg tablet 10 mg PO DAILY BP 11/21/18 [History Confirmed 10/13/23] PFSH Medical History Hyperlipidemia Hypertension Surgical History History of appendectomy (~11/2018) History of cervical spinal surgery Family History Father HypertensionMother Hypertension Social History (Updated 10/13/23 @ 09:49 by Desi Ambrosio) Smoking Status: Never smoker substance use type: does not use HPI HPI HPI: Patient is a 48-year-old male here with abdominal hernia. The hernia is just s uperior to the umbilicus where he had an incision for his appendectomy. Patient reports that the bulging is getting worse and he had severe pain last week. He is able to push the contents back in. He says the pain is worse in the morning. There is no radiation. He denies fevers or chills. ROS General General: No weight change, appetite, fatigue, colon cancer, breast cancer or weakness HEENT HEENT: No difficulty swallowing, eye injury, eye surgery, swollen glands or hoarseness Endo Endocrine: No thyroid disease, diabetes mellitus, thyroid cancer, Hair loss, heat intolerance or cold intolerance Skin Skin: No rash or changing moles Musc Musculoskeletal: No back problems, arthritis, rheumatoid arthritis, gout or joint pain Cardio Cardiovascular: Yes high blood pressure; No murmur, pacemaker, heart disease, atrial fibrillation, heart attack, heart stent, palpitations, shortness of breat with exertion or chest pain Psych Psychiatric: No depression, anxiety or hearing voices Resp Respiratory: No shortness of breath, No sleep apnea, No cough, No COPD, No asthma, No emphysema and No wheezing Gastro Gastrointestinal: Yes abdominal pain, No nausea or vomiting, No diarrhea, No constipation, No blood in stool, Yes acid reflux, No hemorrhoids, No ulcers, No gallbladder problem and No black,tarry stools [place] Hematologic: No blood thinners, No blood disorders, No bleeding, No anemia and No blood clots Neuro Neurologic: No system reviewed and no additional complaints, except as documented, No as per HPI, No abnormal gait, No abnormal hearing, No abnormal movements, No abnormal speech, No behavioral changes, No burning sensations, No confusion, No convulsions, No disequilibrium, No dizziness, No localized weakness, No frequent falls, No headache(s), No lack of coordination, No loss of vision, No memory loss, No numbness, No other visual disturbances, No radicular pain, No restless legs, No sensory deficit, No syncope, No tingling, No tremor(s), No weakness and No other Exam Const General: cooperative Orientation: alert and oriented x3 HENMT Head: normal to inspection Neck Neck: normal visual inspection and full ROM Chest Chest palpation & inspection: normal inspection of the chest Resp Effort & Inspection: normal respiratory effort Auscultation: clear to auscultation bilaterally Cardio Rate: regular rate Rhythm: regular rhythm GI Inspection: non-distended Palpation: soft, hernia ventral and nontender Skin General: no rashes or lesions noted Neuro General: patient alert and patient oriented x3 Extrem General: full ROM Psych Appearance: grossly normal Mental Status: mental status grossly normal Assessment and Plan Assessment and Plan (1) Ventral hernia without obstruction or gangrene: Status: Acute Plan: The patient has a small port site ventral incisional hernia. It is less than 3 cm. I recommend repairing using mesh due to the fact that it is an incisional hernia. I discussed open ventral hernia repair with mesh with the patient in detail. I discussed the risks including but not limited to bleeding or infection or injury to underlying organs. I discussed mesh placement in detail with the patient. Patient understands all of the risks and all of his questions were answered. He will be scheduled for surgery. Carlos Morris MD Pager: [facility] [address] [place] [address], [address] [place] [address] Office: I have examined the patient and the H&P has been reviewed. There are no clinical changes since date of exam.
[2023-10-18] MEDS: Lactated Ringers 1,000 ML 15 ML IV ×2 (10:22→12:34)
[2023-10-18] MEDS: Cefazolin 2 GM in 0.9% Normal Saline (100mL Bag) 100 ML IV (10:55)
[2023-10-18] MEDS: Bupivacaine 0.25% 30 ML Vial (11:45)
--- NOTE | 2023-10-18 12:04 | PCM.OPRPT ---
Report of Operation Date of Procedure: 10/18/23 Pre-Operative Diagnosis: Incisional ventral hernia less than 3 cm Post-Operative Diagnosis: Same Surgery/Procedure Performed:: Open repair of ventral hernia less than 3 cm with mesh Type of Anesthesia: General/Regional Specimen's removed: Hernia sac Estimated Blood Loss (mL): 10 Description of Procedure: Patient was brought back to the operating room and general anesthesia was induced. The abdomen was prepped and draped in usual sterile fashion. The area overlying the previous scar was injected with local anesthetic and incision was made. Blunt dissection was used to follow my way down to the hernia sac. It was going in both directions laterally in the subcutaneous tissue. After the hernia sac was opened and the fat was delivered through it the hernia sac was removed. The omental fat was then reduced back into the abdomen. The fascia was elevated. The underlying tissue was dissected free circumferentially to allow for mesh placement. The mesh was placed and sutured to the anterior fascia using interrupted [address] PDS sutures. Medium Ventralex ST mesh was used. The area was irrigated and suctioned dry. Next the fascia was approximated using interrupted 0 Nurolon sutures. The area was irrigated and suctioned dry and after the remainder of the hernia sac was removed from the subcutaneous tissue the skin was closed with interrupted 3-0 Vicryl sutures. Steri-Strips and bandages were applied. Patient was taken to PACU in stable condition and tolerated the procedure well. Grafts/Implants Used: Medium Ventralex ST mesh Admit VTE Documentation VTE Mechan Device Prophylaxis: SCD's
--- NOTE | 2023-10-18 12:06 | DCINST_ITS ---
Discharge Instructions Procedure Hernia Diet Discharge Diet: Light diet - advance as tolerated Activity Discharge Activity: May Not Drive (for 2-3 days or while taking narcotic pain meds.) and May Shower (with the bandage in place 1-2 days after surgery.) Lifting Restrictions: 20 pounds for 6 weeks. Additional Activity Instructions:: Climbing stairs is fine, walking is encouraged. Sitting in bed may be uncomfortable. Sitting up using your lateral muscles (sitting up sideways) is usually more comfortable. Do not drive, work heavy equipment of sign legal documents for 24 hours. Pain medications may cause nausea, you should typically eat light foods as you take your pain medications. Pain medications may also cause constipation. If you have difficulty with this, discuss with your doctor. Dressing / Incision Call your doctor if your incision/area has: Continuous Slow Oozing, Sudden Increased Bleeding, Increased Pain/ Swelling, Increased Redness and Foul Smelling Discharge Call your doctor if you observe: Fever of 101 or Higher Suture Line Care: Avoid Pulling/Pushing and Avoid Pinching/Bending Remove Dressing in: 2 days (Remove clear bandages in 2 days, remove Steri-Strips in 7 to 10 days.) Cleanse incision/area with: Soap & Water Follow Up Care Please Follow Up With: Carlos Morris MD When: Please call to schedule 2 week follow up appointment. [phone] Test Results: Test results from this visit will be discussed in further detail at your follow- up appointment, if applicable. Discharge Plan Admission Attending Provider: Carlos Morris Primary Care Provider: Dimitrios Tuttle Discharge Orders/Prescriptions Prescriptions: New oxycodone 5 mg tablet 5 - 10 mg PO Q6H PRN (Reason: pain) 5 Days Qty: 20 0RF No Action lisinopril 10 MG tablet 10 mg PO DAILY fenofibrate 40 MG tablet 54 mg PO DAILY rosuvastatin 5 mg tablet 5 mg PO QHS TESTOSTERONE BOOSTER 1 cap PO DAILY Referrals / Follow Up: Dimitrios Tuttle MD [Primary Care Provider] - Disposition Disposition (needs filled in before D/C Order can be placed): Home, Self Care
[2023-10-18] MEDS: oxyCODONE 5 MG Tablet PO (13:04)
== END 2023-10-18 14:52 | disposition home or self-care (01) ==
LOC: SDC 09:10 → AC 09:11
PROVIDERS: PCP Family Medicine; Referring Provider Surgery; Visit Provider Surgery
PROC: (CPT 49591; principal; 2023-10-18 10:45)
DX: K43.9 Ventral hernia without obstruction or gangrene (principal); E78.5 Hyperlipidemia, unspecified; I10 Essential (primary) hypertension
CPT/HCPCS: 49591; 00832; 88302; 93005; C1781; J7120; J2405